=== PATIENT | female | born 1985 | race Caucasian/White ===

== ENCOUNTER 2017-11-06 10:26 | Inpatient (IN) | payer BC ==
[2017-11-06] VITALS (19 sets, daily range): BP systolic 122–172; BP diastolic 61–115
[~2017-11-06] VITALS: Ht 170.2 cm; Wt 106.8 kg
[2017-11-06 11:23] LABS: BASOPHIL (%) 0.4 % (0-1); EOSINOPHIL (%) 1.5 % (0-5); EOSINOPHIL COUNT 0.2 K/uL (0-0.3); HEMATOCRIT 35.6 % (36.0-46.0); HEMOGLOBIN 11.6 G/DL (11.9-15.5); IMMATURE GRANULOCYTE (%) 0.5 % (0.0-0.7); LYMPHOCYTE (%) 16.5 % (15-42); LYMPHOCYTE COUNT 1.8 K/uL (1.0-2.8); MCHC 32.6 G/DL (30.0-36.0); MONOCYTE (%) 7.3 % (3-12); MONOCYTE COUNT 0.8 K/uL (0-0.8); NEUTROPHIL (%) 73.8 % (45-76); NEUTROPHIL COUNT 8.1 K/uL (1.8-6.4); PLATELET COUNT 297 K/uL (156-360); RBC DIS.WIDTH-SD 40.8 % (39-53); RED BLOOD COUNT 4.29 M/uL (3.80-5.20); WHITE BLOOD COUNT 10.9 K/uL (4.1-10.2)
[2017-11-06] MEDS ORDERED: PRENATAL TABLE1 EAC3 PO (11:38)
[2017-11-06] MEDS ORDERED: VITAMIN D5000 UNI1 PO (11:39)
[2017-11-06] MEDS ORDERED: GINKGO BILOBA40 MG PO (11:39)
[2017-11-06] MEDS ORDERED: VITAMIN B122500 MCG PO (11:39)
[2017-11-06 11:46] LABS: UR CREATININE CONCENTRATION 97.2 MG/DL
[2017-11-06 11:53] LABS: ALBUMIN 3.4 G/DL (3.2-4.8); ALKALINE PHOSPHATASE 151 IU/L (3-129); ALT (GPT) 14 IU/L (3-49); AST (GOT) 20 IU/L (2-34); CHLORIDE 105 MEQ/L (99-109); CREATININE 0.5 MG/DL (0.6-1.3); GFR ESTIMATE (CALCULATED) > 59 mL/min/; GLUCOSE 152 mg/dL (70-99); POTASSIUM 4.4 MEQ/L (3.7-5.4); SODIUM 136 MEQ/L (136-147); TOTAL BILIRUBIN 0.3 MG/DL (0.0-1.0); TOTAL PROTEIN 6.1 G/DL (6.4-8.3); UREA NITROGEN (BUN) 7 mg/dL (9-23); URIC ACID 3.4 mg/dL (3.1-9.2)
[2017-11-07] VITALS (23 sets, daily range): BP systolic 120–158; BP diastolic 63–95
[2017-11-07 02:09] LABS: AMPHETAMINE NEGATIVE (500 ng/mL); BARBITURATES NEGATIVE (200 ng/mL); BENZODIAZEPINES NEGATIVE (150 ng/mL); BUPRENORPHINE NEGATIVE (10 ng/mL); COCAINE NEGATIVE (150 ng/mL); METHADONE NEGATIVE (200 ng/mL); METHAMPHETAMINE NEGATIVE (500 ng/mL); OPIATES (MORPHINE) NEGATIVE (100 ng/mL); OXYCODONE NEGATIVE (100 ng/mL); PHENCYCLIDINE NEGATIVE (25 ng/mL); PROPOXYPHENE NEGATIVE (300 ng/mL); THC CANNABINOIDS NEGATIVE (50 ng/mL); TRICYCLIC ANTIDEPRESSANTS NEGATIVE (300 ng/mL)
[2017-11-08] VITALS (31 sets, daily range): BP systolic 106–179; BP diastolic 55–103
[2017-11-09] VITALS (25 sets, daily range): BP systolic 103–156; BP diastolic 55–81
[2017-11-10] VITALS (8 sets, daily range): BP systolic 112–161; BP diastolic 55–90
[2017-11-11 03:57] VITALS: BP 146/75
[2017-11-11 08:26] VITALS: BP 135/80
[2017-11-11 08:43] VITALS: BP 135/80
[2017-11-11] MEDS ORDERED: LABETALOL HCL200 MG PO (09:35)
[2017-11-11] MEDS ORDERED: MOTRIN800 MG PO (09:35)
== END 2017-11-11 13:55 | disposition home or self-care (01) | DRG 775 ==
LOC: LDRP-OP 10:26 → 2WEST 10:27
PROVIDERS: Obstetrics & Gynecology Gynecology
PROC: 3E0P7VZ Introduction of Hormone into Female Reproductive, Via Natural or Artificial Opening (ICD-10-PCS; principal; 2017-11-06)
PROC: 00HU33Z Insertion of Infusion Device into Spinal Canal, Percutaneous Approach (ICD-10-PCS; 2017-11-08)
PROC: 3E0R3BZ Introduction of Anesthetic Agent into Spinal Canal, Percutaneous Approach (ICD-10-PCS; 2017-11-08)
PROC: 0HQ9XZZ Repair Perineum Skin, External Approach (ICD-10-PCS; 2017-11-09)
PROC: 10E0XZZ Delivery of Products of Conception, External Approach (ICD-10-PCS; 2017-11-09)
DX: O70.0 First degree perineal laceration during delivery (principal); O14.04 Mild to moderate pre-eclampsia, complicating childbirth; O99.214 Obesity complicating childbirth; E66.9 Obesity, unspecified; Z68.32 Body mass index [BMI] 32.0-32.9, adult; Z37.0 Single live birth; Z3A.38 38 weeks gestation of pregnancy; O76 Abnormality in fetal heart rate and rhythm complicating labor and delivery
CPT/HCPCS: 80053; 82570; 84156; 84550; 85025; G0378; J2405; J3010; J7120